=== PATIENT | female | born 1965 | race American Indian/Alaskan Native ===

== ENCOUNTER 2017-05-13 19:06 | Emergency (ER) | payer OTHER ==
[2017-05-14] MEDS ORDERED: NORCO 7.5/325 PO ONE (00:06)
--- NOTE | 2017-05-14 00:07 | Emergency Department Report ---
ED Back Pain/Injury HPI - General Chief Complaint: Back Pain/Injury Stated Complaint: BACK PAIN Time Seen by Provider: 05/14/17 00:06 Source: patient Mode of arrival: Wheelchair Limitations: No Limitations - History of Present Illness Initial Comments: This is a 51 y.o. female that presents with right flank pain that started today while at work. 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 She felt something pull but continued to work because she thought it would get better. Patient states she picked up a box and couldn't stand because the pain was so bad she started to cry. Reports pain as 10/10 on mid right side of back. Denies pop sound, radiating, swelling, redness, chest pain, numbness, or tingling. Coworkers went and got a cart to roll her out to the car. Her dealer relationship manager put ice on it and brought her to ER. MD Complaint: back pain -: This evening Similar Symptoms Previously: No Place: work Radiation: none Severity: severe Severity scale (0 -10): 10 Quality: sharp, aching Consistency: intermittent Improves With: immobilization, medication Worsens With: movement, walking Context: while lifting, turning/twisting Associated Symptoms: difficulty walking. denies: confusion, weakness, chest pain, numbness, cough, difficulty urinating, diaphoresis, incontinence, fever/ chills, constipation, headaches, abdominal pain, loss of appetite, malaise, nausea/vomiting, rash, seizure, shortness of breath, syncope Treatments Prior to Arrival: cold therapy - Related Data Previous Rx's Medication Instructions Recorded Last Taken Type Cyclobenzaprine HCl [Flexeril 5 MG 5 mg PO TID PRN #20 tab 05/14/17 Unknown Rx TAB] Diclofenac Sodium 50 mg PO Q6H PRN #20 tablet. 05/14/17 Unknown Rx Allergies Allergy/AdvReac Type Severity Reaction Status Date / Time No Known Allergies Allergy Unverified 04/29/13 09:54 ED Review of Systems ROS: Stated complaint: BACK PAIN Other details as noted in HPI Constitutional: denies: chills, fever, malaise Respiratory: denies: cough, orthopnea, shortness of breath, wheezing Cardiovascular: denies: chest pain, palpitations, edema, syncope Gastrointestinal: denies: abdominal pain, nausea, vomiting, diarrhea, constipation Genitourinary: denies: urgency, dysuria, frequency, hematuria, discharge Musculoskeletal: back pain (right flank pain). denies: joint swelling, arthralgia Skin: denies: rash, lesions, change in color Neurological: denies: headache, weakness, numbness, paresthesias Psychiatric: denies: anxiety, depression ED Past Medical Hx - Past Medical History HYPERTHYROID ED Back Pain Physical Exam - Exam General: Vital signs noted. No distress. Alert and acting appropriately. Back/Abdomen: Yes Perilumbar Tenderness, Yes Flank Tenderness (right), No Abdominal Tenderness, No Perithoracic Tenderness, No Sacroiliac Tenderness, No Straight Leg Raise Pain Neuro: Yes Normal Sensation, Yes Normal DTR's, No Motor Weakness, No Normal Gait (limited to pain) ED Course Vital Signs 05/13/17 19:13 Temperature 98 F Pulse Rate 68 Respiratory 18 Rate Blood Pressure 137/75 O2 Sat by Pulse 100 Oximetry ED Medical Decision Making - Medical Decision Making This is a 51 y.o. 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 Patient is stable and examined by me. Pt refused radiograph. Mild acute signs of distress noted. Given norco 7.5/325 mg po once in ER. Discussed plan to start cyclobenzaprine and diclofenac for muscle spasm with patient. Patient agrees to ED plan of care. Discharged home and encouraged to f/u with PCP or Workers Comp in 24-48 hours. Critical care attestation.: If time is entered above; I have spent that time in minutes in the direct care of this critically ill patient, excluding procedure time. ED Disposition Clinical Impression: Acute right flank pain Strain of lumbar paraspinal muscle Qualifiers: Encounter type: initial encounter Qualified Code(s): S39.012A - Strain of muscle, fascia and tendon of lower back, initial encounter Disposition: TO HOME OR SELFCARE Is pt being admited?: No Does the pt Need Aspirin: No Condition: Stable Instructions: Muscle Strain (ED), Flank Pain (ED) Additional Instructions: Rest Use ice or heat on affected area for 20 minutes and off for 2 hours. Take pain medication as needed for pain. Don't drive or operate heavy machinery while taking muscle relaxers because they may cause drowsiness. Follow up with Workers Comp or Primary Care Provider in 24-48 hours. Prescriptions: Cyclobenzaprine HCl [Flexeril 5 MG TAB] 5 mg PO TID PRN #20 tab PRN Reason: Muscle Spasm Diclofenac Sodium 50 mg PO Q6H PRN #20 tablet. PRN Reason: Pain Referrals: [facility] [Outside] - 3-5 Days [facility] [Outside] - 3-5 Days [facility] [Outside] - 3-5 Days Time of Disposition: 02:20 Print Language: FRENCH
[2017-05-14 04:52] VITALS: BP 147/72
== END 2017-05-14 02:40 | disposition home or self-care (01) ==
LOC: ED 19:06
DX: S39.012A Strain of muscle, fascia and tendon of lower back, initial encounter (principal); X58.XXXA Exposure to other specified factors, initial encounter; Y93.89 Activity, other specified; Y92.89 Other specified places as the place of occurrence of the external cause; Y99.8 Other external cause status
CPT/HCPCS: 99282